=== PATIENT | male | born 1950 | race Caucasian/White ===

== ENCOUNTER 2020-01-13 16:15 | Outpatient (REF) | payer OTHER, SELFPAY ==
[2020-01-13 17:52] LABS: T4 Thyroxine 4.4 ug/dL (4.5-12.0); Thyroid Stimulating Hormone 1.94 mIU/mL (0.32-4.0)
[2020-01-13 18:06] LABS: Erythrocyte Sedimentation Rate 74 MM/HR (0-15)
[2020-01-17 15:11] LABS: Aldolase 3.7 U/L (<=8.1)
== END 2020-01-13 16:16 | disposition home or self-care (01) ==
LOC: HO.LAB 16:15
PROVIDERS: PCP Internal Medicine; Visit Provider Psychiatry & Neurology Neurology
DX: M33.20 Polymyositis, organ involvement unspecified (principal)
CPT/HCPCS: 36415; 82085; 82550; 84436; 84443; 85652